=== PATIENT | male | born 1985 | race Caucasian/White ===

== ENCOUNTER 2017-01-07 11:55 | Emergency (ER) | payer BC ==
[2017-01-07 13:50] VITALS: BP 114/63
[2017-01-07] MEDS ORDERED: Tetracaine 0.5% OPTH.SOL 4 ML* 1 DROP BTL BOTH EYES ONE (13:57)
[2017-01-07] MEDS ORDERED: Fluorescein Sodium TOPICAL* 1 MG TEST OPHTHALMIC ONE (13:57)
[2017-01-07] MEDS ORDERED: BSS OPTH.SOL* BTL OPHTHALMIC ONE (13:58)
[2017-01-07] MEDS ORDERED: Tetracaine 0.5% OPTH.SOL 15ML* BTL ONE (14:01)
--- NOTE | 2017-01-07 14:20 | UC ---
Eye Complaint HPI - HPI Summary HPI Summary: FB metal shaving in eye last night around 7 pm , while working on his car - History of Current Complaint Chief Complaint: UCEye Stated Complaint: FB IN EYE Time Seen by Provider: 01/07/17 13:57 Hx Obtained From: Patient Onset/Duration: Sudden Onset, Lasting Hours Timing: Hours Severity Initially: Moderate Severity Currently: Moderate Location of Injury: Conjunctiva, Eye Lid (upper), Sclera Character: Sharp, Foreign Body Sensation Alleviating Factor(s): Nothing - Allergies/Home Medications Allergies/Adverse Reactions: Allergies Allergy/AdvReac Type Severity Reaction Status Date / Time No Known Allergies Allergy Verified 01/07/17 13:40 PMH/Surg Hx/FS Hx/Imm Hx Previously Healthy: Yes Endocrine History Of: Denies: Diabetes, Thyroid Disease Cardiovascular History Of: Denies: Cardiac Disorders, Hypertension Respiratory History Of: Denies: COPD, Asthma GI/ History Of: Denies: Ulcer - Surgical History Surgical History: None - Family History Known Family History: Negative: Hypertension - Social History Alcohol Use: Weekly Substance Use Type: Marijuana Smoking Status (MU): Light Every Day Tobacco Smoker Type: Cigarettes Household Exposure Type: Cigarettes - Immunization History Most Recent Influenza Vaccination: unknown Most Recent Tetanus Shot: 2014 Most Recent Pneumonia Vaccination: unknown Review of Systems Constitutional: Negative Skin: Negative Eyes: Eye Redness, Photophobia ENT: Negative Respiratory: Negative Cardiovascular: Negative Gastrointestinal: Negative Genitourinary: Negative Motor: Negative Neurovascular: Negative Musculoskeletal: Negative Neurological: Negative Psychological: Negative All Other Systems Reviewed And Are Negative: Yes Physical Exam Triage Information Reviewed: Yes Appearance: Well-Appearing, Well-Nourished, Pain Distress Vital Signs: Initial Vital Signs Temp 97.8 F 01/07/17 13:41 Pulse 54 01/07/17 13:41 Resp 16 01/07/17 13:41 BP 114/63 01/07/17 13:41 Pulse Ox 100 01/07/17 13:41 Vital Signs Reviewed: Yes Eye Exam: Normal Eyes: Positive: Conjunctiva Clear ENT Exam: Normal ENT: Positive: Hearing grossly normal, Pharynx normal, TMs normal Dental Exam: Normal Neck exam: Normal Neck: Positive: Supple, Nontender, No Lymphadenopathy Respiratory Exam: Normal Respiratory: Positive: Chest non-tender, Lungs clear, Normal breath sounds Cardiovascular Exam: Normal Cardiovascular: Positive: RRR, No Murmur, Pulses Normal Abdominal Exam: Normal Abdomen Description: Positive: Nontender, No Organomegaly, Soft Bowel Sounds: Positive: Present Musculoskeletal Exam: Normal Musculoskeletal: Positive: Strength Intact, ROM Intact, No Edema Neurological Exam: Normal Neurological: Positive: Alert, Muscle Tone Normal Psychological Exam: Normal Skin Exam: Normal Eye Complaint Course/Dx - Course Course Of Treatment: hx obtained, exam performed, meds reviewed, removed metal shaving from eye, patient tolerated well. Abx cream prescribed. - Differential Dx/Diagnosis Differential Diagnosis/HQI/PQRI: Conjunctivitis, Corneal Abrasion, Penetrating Injury Provider Diagnoses: FB in eye. corneal abrasion Discharge - Discharge Plan Condition: Stable Disposition: HOME Patient Education Materials: Corneal Abrasion (ED), Eye Foreign Body (ED)
== END 2017-01-07 14:42 | disposition home or self-care (01) ==
LOC: UCEAST 11:55
DX: T15.00XA Foreign body in cornea, unspecified eye, initial encounter (principal); F12.90 Cannabis use, unspecified, uncomplicated; F17.210 Nicotine dependence, cigarettes, uncomplicated
CPT/HCPCS: 99212; A9270-GY; G0463

== ENCOUNTER 2017-12-19 16:01 | Emergency (ER) | payer BC ==
[2017-12-19 16:40] VITALS: BP 131/80
[2017-12-19] MEDS ORDERED: Tetracaine 0.5% OPTH.SOL 15ML* BTL ONE (16:53)
[2017-12-19] MEDS ORDERED: Tetracaine 0.5% OPTH.SOL 4 ML* 1 DROP BTL BOTH EYES ONE ×2 (17:00→18:05)
--- NOTE | 2017-12-19 17:02 | UC ---
Eye Complaint HPI - History of Current Complaint Chief Complaint: UCEye Stated Complaint: RUST IN BOTH EYES Time Seen by Provider: 12/19/17 17:01 Pain Intensity: 8 - Allergies/Home Medications Allergies/Adverse Reactions: Allergies Allergy/AdvReac Type Severity Reaction Status Date / Time No Known Allergies Allergy Verified 12/19/17 16:40 Home Medications: Home Medications NK [No Home Medications Reported] 12/19/17 [History Confirmed 12/19/17] PMH/Surg Hx/FS Hx/Imm Hx - Surgical History Surgical History: None - Family History Known Family History: Negative: Hypertension - Social History Alcohol Use: Occasionally Substance Use Type: None Smoking Status (MU): Never Smoked Tobacco Type: Cigarettes Household Exposure Type: Cigarettes - Immunization History Most Recent Influenza Vaccination: unknown Most Recent Tetanus Shot: 2014 Most Recent Pneumonia Vaccination: unknown Physical Exam Vital Signs: Initial Vital Signs Temp 36.7 F 12/19/17 16:37 Pulse 80 12/19/17 16:37 Resp 18 12/19/17 16:37 BP 131/80 12/19/17 16:37 Pulse Ox 100 12/19/17 16:37 Discharge - Discharge Plan Referrals: Sarah Vigil MD [Primary Care Provider] -
--- NOTE | 2017-12-19 18:05 | UC ---
Eye Complaint HPI - HPI Summary HPI Summary: Pt presents with rust in both eyes. He tells me that yesterday he was working on his truck and some pieces of rust fell into his eyes. He rubbed them and got a lot of rust like material out. Went to bed and didn't have much pain. Went through the day today with some irritation. Later this afternoon began to feel FB sensations and irritation in his eyes. No glasses or contact wearing. No decreased vision. Does not have an eye doctor. - History of Current Complaint Chief Complaint: UCEye Stated Complaint: RUST IN BOTH EYES Time Seen by Provider: 12/19/17 17:01 Hx Obtained From: Patient Severity Initially: Mild Severity Currently: Severe Pain Intensity: 8 Pain Scale Used: 0-10 Numeric - Allergies/Home Medications Allergies/Adverse Reactions: Allergies Allergy/AdvReac Type Severity Reaction Status Date / Time No Known Allergies Allergy Verified 12/19/17 16:40 PMH/Surg Hx/FS Hx/Imm Hx - Additional Past Medical History Additional PMH: None Previously Healthy: Yes - Surgical History Surgical History: None - Family History Known Family History: Negative: Hypertension - Social History Occupation: Employed Full-time Lives: With Family Alcohol Use: Occasionally Substance Use Type: None Smoking Status (MU): Never Smoked Tobacco Type: Cigarettes Household Exposure Type: Cigarettes - Immunization History Most Recent Influenza Vaccination: unknown Most Recent Tetanus Shot: 2014 Most Recent Pneumonia Vaccination: unknown Review of Systems Constitutional: Negative Skin: Negative Eyes: Eye Redness, Other - FBs Respiratory: Negative Cardiovascular: Negative Neurovascular: Negative Musculoskeletal: Negative Neurological: Negative Psychological: Negative All Other Systems Reviewed And Are Negative: Yes Physical Exam - Summary Physical Exam Summary: GENERAL: NAD. WDWN. No pain distress. SKIN: No rashes, sores, ulcers, masses, lesions. HEENT: Head: AT/NC Eyes: Right eye: 4 pinprick FBs on cornea. Left eye: 3 pinprick FBs on cornea. EOM intact. PERRLA. Conjunctiva clear without inflammation or discharge. NECK: Supple. Nontender. No lymphadenopathy. CHEST: No accessory muscle use. Breathing comfortably and in no distress. CV: RRR. Without m/r/g. Pulses intact. Brisk cap refill. NEURO: Alert. CN II-XII grossly intact. PSYCH: Age appropriate behavior. Triage Information Reviewed: Yes Vital Signs: Initial Vital Signs Temp 36.7 F 12/19/17 16:37 Pulse 80 12/19/17 16:37 Resp 18 12/19/17 16:37 BP 131/80 12/19/17 16:37 Pulse Ox 100 12/19/17 16:37 Eye Complaint Course/Dx - Course Course Of Treatment: Tetracaine instilled with great relief of discomfort. Joby lens 500ccs each eye. 2 FBs remained in each eye. I was able to remove one FB with a cotton swab from the left eye, but was unable to remove the remaining pieces. Rx for cipro eye drops and referral to Dr. Hawthorne to be seen tomorrow. - Differential Dx/Diagnosis Provider Diagnoses: B/L eye FBs Discharge - Sign-Out/Discharge Documenting (check all that apply): Discharge/Admit/Transfer - Discharge Plan Condition: Stable Disposition: HOME Prescriptions: Ciprofloxacin 0.3% OPTH.GUILHERME* [Cipro 0.3% Opth*] 1 drop BOTH EYES Q6H #1 btl Patient Education Materials: Corneal Abrasion (ED) Referrals: Sarah Vigil MD [Primary Care Provider] - Rich Hawthorne MD [Medical Doctor] - As Soon As Possible Additional Instructions: If you develop a fever, shortness of breath, chest pain, new or worsening symptoms - please call your PCP or go to the ED. 1) Please call Dr. Hawthorne in the morning to schedule an appointment [facility] - Billing Disposition and Condition Condition: STABLE Disposition: HOME
== END 2017-12-19 18:50 | disposition home or self-care (01) ==
LOC: UCEAST 16:01
DX: T15.92XA Foreign body on external eye, part unspecified, left eye, initial encounter (principal); T15.91XA Foreign body on external eye, part unspecified, right eye, initial encounter
CPT/HCPCS: 99212; A9270-GY; G0463

== ENCOUNTER 2017-12-19 20:39 | Emergency (ER) | payer BC ==
[2017-12-19] MEDS ORDERED: Fluorescein Sodium TOPICAL* 1 MG TEST OPHTHALMIC ONE (21:01)
[2017-12-19] MEDS ORDERED: Tetracaine 0.5% OPTH.SOL 4 ML* 1 DROP BTL ONE ×2 (21:01→21:04)
[2017-12-19] MEDS ORDERED: Fluorescein Sod TOPICAL 0.6* 0.6 MG TEST OPHTHALMIC ONE (21:04)
--- NOTE | 2017-12-19 21:49 | ED ---
Throat Pain/Nasal Congestion - HPI Summary HPI Summary: 32-year-old male presents with foreign body in both eyes. He is working on trunk and objects fell into his eye. He states that he was seen in urgent care and they attempted to remove object and flushes eye. He states he states he took 1 dose of antibiotics. He denies any drainage from his eye. admits to blurry vision. Denies any double vision. He admits to light sensitivity. Hasn 't taking anything for his pain. pain is 10 out of 10. He does not wear glasses or contacts. His tetanus is up-to-date. No other injury. He states he cannot deal with the pain and would like the object removed. - History of Current Complaint Chief Complaint: EDEyeProblem Time Seen by Provider: 12/19/17 20:55 - Allergies/Home Medications Allergies/Adverse Reactions: Allergies Allergy/AdvReac Type Severity Reaction Status Date / Time No Known Allergies Allergy Verified 12/19/17 16:40 PMH/Surg Hx/FS Hx/Imm Hx Endocrine/Hematology History: Denies: Hx Diabetes, Hx Thyroid Disease Cardiovascular History: Denies: Hx Hypertension Respiratory History: Denies: Hx Asthma, Hx Chronic Obstructive Pulmonary Disease (COPD) GI History: Denies: Hx Ulcer Musculoskeletal History: Reports: Hx Scoliosis Psychiatric History: Denies: Hx of Violent Episodes Against Others Infectious Disease History: No Infectious Disease History: Denies: Hx Hepatitis, Hx Human Immunodeficiency Virus (HIV), History Other Infectious Disease, Traveled Outside the in Last 30 Days - Family History Known Family History: Negative: Hypertension - Social History Alcohol Use: Occasionally Substance Use Type: Reports: None Smoking Status (MU): Never Smoked Tobacco Type: Cigarettes Review of Systems Negative: Fever Positive: Erythema, Other - foreign body in bilateral eyes All Other Systems Reviewed And Are Negative: Yes Physical Exam Triage Information Reviewed: Yes Vital Signs On Initial Exam: Initial Vitals Temp Pulse Resp BP Pulse Ox 98.3 F 59 16 137/83 99 12/19/17 20:42 12/19/17 20:42 12/19/17 20:42 12/19/17 20:42 12/19/17 20:42 Vital Signs Reviewed: Yes Appearance: Positive: Well-Appearing Skin: Positive: Warm, Dry Head/Face: Positive: Normal Head/Face Inspection Eyes: Positive: EOMI, AMAIRANI, Conjunctiva Inflammed, Other: - pinpoint foreign body at 3 and 8 position left eye, foreign body at 9 position and abrasion at 4 of right eye on florescein exam ENT: Positive: Normal ENT inspection, Pharynx normal, TMs normal Respiratory/Lung Sounds: Positive: Clear to Auscultation, Breath Sounds Present Cardiovascular: Positive: Normal, RRR Musculoskeletal: Positive: Normal Neurological: Positive: Normal Psychiatric: Positive: Normal Procedures - Eye Procedure Alcaine Drops Administered: Yes - uptake at 5 position right eye Eye FB Removal: removal w/ cotton swab - left eye at 8 and 3 position, removal w / needle - right eye at 9 position Diagnostics - Vital Signs Vital Signs Temp Pulse Resp BP Pulse Ox 12/19/17 20:42 98.3 F 59 16 137/83 99 - Laboratory Lab Statement: Any lab studies that have been ordered have been reviewed, and results considered in the medical decision making process. EENT Course/Dx - Course Course Of Treatment: 32-year-old male presents with foreign body in both eyes. He is working on trunk and objects fell into his eye. He states that he was seen in urgent care and they attempted to remove object and flushes eye. He states he states he took 1 dose of antibiotics. He denies any drainage from his eye. admits to blurry vision. Denies any double vision. He admits to light sensitivity. Hasn't taking anything for his pain. pain is 10 out of 10. He does not wear glasses or contacts. His tetanus is up-to-date. No other injury. He states he cannot deal with the pain and would like the object removed. pinpoint foreign body at 3 and 8 position left eye, foreign body at 9 position and abrasion at 4 of right eye on florescein exam. removed three objects with needle and q tip. will have follow up with optho as appear could have rust ring vs embedded object still present. will have follow up with optho. gave pain medication. patient understand and agrees with plan. - Differential Diagnoses Differential Diagnoses: Conjunctivitis, Corneal Abrasion, Foreign Body - Diagnoses Provider Diagnoses: Foreign body of right eye, Foreign body of left eye Discharge - Sign-Out/Discharge Documenting (check all that apply): Discharge/Admit/Transfer - Discharge Plan Condition: Good Disposition: HOME Patient Education Materials: Eye Foreign Body (ED) Referrals: Sarah Vigil MD [Primary Care Provider] - Rich Hawthorne MD [Medical Doctor] - Additional Instructions: take eye drops as prescribed Use artificial tears or saline to rinse eye for symptomatic relief Take Tylenol or ibuprofen for pain every 6 hours, use narcotic for break through pain Follow up with ophthalmology, call office tomorrow Return to ED if develop any new or worsening symptoms - Billing Disposition and Condition Condition: GOOD Disposition: HOME
[2017-12-19 22:22] VITALS: BP 130/76
== END 2017-12-19 22:21 | disposition home or self-care (01) ==
LOC: ED 20:39
DX: T15.12XA Foreign body in conjunctival sac, left eye, initial encounter (principal); T15.11XA Foreign body in conjunctival sac, right eye, initial encounter; X58.XXXA Exposure to other specified factors, initial encounter; Y93.89 Activity, other specified; Y92.9 Unspecified place or not applicable
CPT/HCPCS: 65205; 99282; A9270-GY